=== PATIENT | female | born 1985 | race Caucasian/White ===

== ENCOUNTER 2017-03-15 19:41 | Emergency (ER) | payer OTHER ==
[~2017-03-15] VITALS: Ht 172.7 cm; Wt 111.4 kg
[2017-03-15] MEDS ORDERED: PRENTAB9 PO (19:48)
[2017-03-15 21:17] LABS: BASO % 0.4 % (0.0-1.0); EOS # 0.1 K/mm3 (0.0-0.50); EOS % 1.2 % (0.0-3.0); LARGE UNSTAINED CELL # 0.1 K/mm3 (0.0-0.4); LARGE UNSTAINED CELL % 1.3 % (0.0-4.0); LYMPH # 2.5 K/mm3 (1.5-4.5); LYMPH % 23.4 % (24.0-44.0); MEAN CORPUSCULAR HEMOGLOBIN 31.6 pg (27.0-33.0); MONO # 0.5 K/mm3 (0.0-0.8); MONO % 4.6 % (0.0-5.0); NEUTROPHILS # 6.9 K/mm3 (1.8-7.7); PLATELET COUNT, AUTOMATED 236 k/mm3 (150-450); RED CELL DISTRIBUTION WIDTH 12.8 % (11.5-14.5)
--- NOTE | 2017-03-15 21:40 | REPUSA ---
Clinical history: cramping, vaginal spotting. Findings: Real-time transabdominal ultrasound images of the pelvis were obtained. There is a single l kan intrauterine . The crown rump length measures 7.0 cm. heart rate measures 165 bpm . An anteverted uterus is noted. The right ovary measures 4.2 x 3.7 x 3.6 cm. There is a complex righ t ovarian cyst measuring 2.0 x 1.8 x 1.6 cm. The left ovary measures 3.8 x 3.3 x 3.5 cm. There is a c omplex left ovarian cyst, measuring 1.7 x 1.5 cm. No adnexal masses are seen. Color Doppler flow is s een within both ovaries. There is no evidence of free fluid. Impression: 1. Single live intrauterine measuring 13 weeks 1 day, with a heart rate of 165 bpm. E stimated due date is 09/23/2017. 2. Large subchorionic hemorrhage as described. 3. Bilateral complex ovarian cyst.
[2017-03-15 23:01] VITALS: BP 142/85
== END 2017-03-15 23:03 | disposition home or self-care (01) ==
LOC: M ED 19:41
DX: O20.9 Hemorrhage in early pregnancy, unspecified (principal); O26.892 Other specified pregnancy related conditions, second trimester; R10.2 Pelvic and perineal pain; O36.899 Maternal care for other specified fetal problems, unspecified trimester; O98.512 Other viral diseases complicating pregnancy, second trimester; B02.9 Zoster without complications; Z3A.13 13 weeks gestation of pregnancy; Z88.8 Allergy status to other drugs, medicaments and biological substances

== ENCOUNTER 2017-04-21 17:47 | Emergency (ER) | payer OTHER ==
[~2017-04-21] VITALS: Ht 172.7 cm; Wt 110.0 kg
[~2017-04-21 17:47] MED LIST: PRENTAB9 PO
[2017-04-21] MEDS ORDERED: NS 1,000 ML IV ONE (19:45)
[2017-04-21 20:13] LABS: BASO % 0.4 % (0.0-1.0); EOS # 0.1 10^3/uL (0.0-0.50); EOS % 0.6 % (0.0-3.0); IMMATURE GRANULOCYTE % 0.4 % (0-0); LYMPH # 2.1 10^3/uL (1.5-4.5); LYMPH % 19.4 % (24.0-44.0); MEAN CORPUSCULAR HEMOGLOBIN 31.7 pg (27.0-33.0); MEAN CORPUSCULAR VOLUME 90.7 fl (80.0-96.0); MONO # 0.6 10^3/uL (0.0-0.8); MONO % 5.5 % (0.0-5.0); NEUTROPHILS % 73.7 % (36.0-66.0); PLATELET COUNT, AUTOMATED 246 10^3/uL (150-450); RED CELL DISTRIBUTION WIDTH 12.9 % (11.5-14.5); WHITE BLOOD COUNT 10.8 10^3/uL (4.0-10.0)
--- NOTE | 2017-04-21 21:50 | REPUSA ---
OBSTETRICAL ULTRASOUND INDICATION: OB screening. Vaginal bleeding. Comparison is made with prior study at 03/15/2017. FINDINGS: A single live intrauterine gestation was identified with a heart rate of 140 bpm. The amniotic fluid index is grossly normal cm. The placenta was posterior, without evidence of placenta previa. The fetus was in a cephalic lie. The cervix measures 4.4 cm in length and is closed. Estimate d weight is 215 g. The cranium and ventricles are unremarkable. Posterior fossa is within normal limits. The spine demonstrates normal contour and appearance. The orbits, facial anatomy, nasal anatomy, and lip s are normal in appearance. All 4 extremities appear grossly unremarkable. A four-chamber heart is ap preciated. The stomach, kidneys, bladder, and diaphragm are intact. A three-vessel umbilical co rd with normal cord insertion is appreciated. BIOMETRIC MEASUREMENTS BPD 4.0 cm HC 15.8 cm AC 13.6 cm FL 2.8 cm IMPRESSION: 1. Single live fetus based on today's measurements at 18 weeks 3 days, with estimated due date of 09/03. 2. No abnormality detected on the survey. Normal growth has been appreciated.
[2017-04-21 22:24] VITALS: BP 124/81
== END 2017-04-21 22:25 | disposition home or self-care (01) ==
LOC: M ED 17:47
DX: O99.89 Other specified diseases and conditions complicating pregnancy, childbirth and the puerperium (principal); E86.0 Dehydration; O20.8 Other hemorrhage in early pregnancy; Z3A.18 18 weeks gestation of pregnancy; Z79.899 Other long term (current) drug therapy

== ENCOUNTER 2017-05-20 04:29 | Outpatient (CLI) | payer OTHER ==
[~2017-05-20] VITALS: Ht 172.7 cm; Wt 115.0 kg
[2017-05-20 05:59] LABS: MEAN CORPUSCULAR HEMOGLOBIN 31.4 pg (27.0-33.0); MEAN CORPUSCULAR HGB CONC 33.9 g/dl (32.0-36.5); MEAN CORPUSCULAR VOLUME 92.6 fl (80.0-96.0); PLATELET COUNT, AUTOMATED 227 10^3/uL (150-450); RED CELL DISTRIBUTION WIDTH 12.3 % (11.5-14.5); WHITE BLOOD COUNT 9.5 10^3/uL (4.0-10.0)
--- NOTE | 2017-05-20 06:20 | REPUSA ---
CLINICAL HISTORY: Subchorionic hemorrhage. TECHNIQUE: Realtime sonographic images were obtained in multiple projections via TA approach. The exa mination was performed by the steel turner and still images were submitted for interpretation. COMMENTS: Comparison to prior exam performed on 04/21/2017. Single, live intrauterine gestation in vertex presentation. heart rate 147 beats per minute. Posterior/fundal placenta. No placenta previa is identified. Decrease in the size of a subchorionic hemorrhage which measures 7.7x8x1.6 cm on the current exam. Amniotic fluid volume appears normal. Amniotic fluid index is 11 cm. Normal cervical length measuring 3.9 cm measured transvaginally. Funneling of the internal cervical os was visualized. IMPRESSION: Decrease in the size of the size of the subchorionic hemorrhage. Thank you for your kind referral of this patient.
--- NOTE | 2017-05-20 07:18 | HPE ---
DATE OF ADMISSION: 05/20/2017 32-year-old, 5, para 4, last menstrual period 12/17/2016, estimated date of confinement (EDC) 09/23/2017 at 22 weeks of gestation with a known subchorionic hemorrhage since 8 weeks of gestation. She had called regarding bleeding over three days and came in for evaluation. Her blood work is A positive, HIV negative, hepatitis negative, RPR negative, Rubella immune, Varicella immune, urine negative, gonorrhea and chlamydia are negative. One hour glucose 83. Pap was normal. HPV negative. Risk factors are that she has had subchorionic hemorrhage since 8 weeks. On examination, she is rather distressed and very anxious. Symphysis fundus height is 23, nontender uterus. heart rate is present. Ultrasound showed vertex, KEENAN of 11, cervix is 3.7. Despite the fact that the radiology report says she is funneling, on examination of the images, as well as discussing with the restorative care technician, there was no evidence of funneling. The subchorionic hemorrhage has not changed. It is 7 x 8 x 1.6. There is old blood in the vagina. The cervix is closed. There is no evidence of active or fresh bleeding. Hemoglobin is 12.7, hematocrit is 37.5, platelets are 227. The patient is hemodynamically stable. Blood pressure 119/70, respirations 20, pulse 138, and temperature is 98.2. In summary, we have a at 22 weeks with a subchorionic hemorrhage, known, no change in any of her status, hemodynamically stable. She was discharged with instructions of the possibility of steroids at 23 weeks in anticipation of a delivery. This will be discussed at her next visit. The patient has a followup ultrasound in 3 weeks' time, visit in 1 week. The patient was discharged undelivered and much calmer.
== END 2017-05-20 06:27 | disposition home or self-care (01) ==
LOC: M LDO 04:29
PROVIDERS: ATTEND Obstetrics & Gynecology
DX: O99.89 Other specified diseases and conditions complicating pregnancy, childbirth and the puerperium (principal); Z3A.22 22 weeks gestation of pregnancy; O20.8 Other hemorrhage in early pregnancy; O26.852 Spotting complicating pregnancy, second trimester

== ENCOUNTER 2017-05-30 08:45 | Outpatient (CLI) | payer OTHER ==
[~2017-05-30] VITALS: Ht 172.7 cm; Wt 116.8 kg
[2017-05-30 09:00] VITALS: BP 136/80
[2017-05-30] MEDS ORDERED: BETAMETHASONE SOLUSPAN 6MG/ML INJ 5ML (J0702) IM ONE (09:00)
[2017-05-31] MEDS ORDERED: ACET50TA PO (09:28)
== END 2017-05-30 09:11 | disposition home or self-care (01) ==
LOC: M LDO 08:45
PROVIDERS: ATTEND Obstetrics & Gynecology
DX: Z34.82 Encounter for supervision of other normal pregnancy, second trimester (principal); Z3A.23 23 weeks gestation of pregnancy
CPT/HCPCS: 96372; J0702

== ENCOUNTER 2017-05-31 08:58 | Outpatient (CLI) | payer OTHER ==
[~2017-05-31] VITALS: Ht 172.7 cm; Wt 116.8 kg
[2017-05-31 09:10] VITALS: BP 113/70
[2017-05-31] MEDS ORDERED: ACET50TA PO (09:28)
[2017-05-31] MEDS ORDERED: BETAMETHASONE SOLUSPAN 6MG/ML INJ 5ML (J0702) IM SCH (09:30)
== END 2017-05-31 09:15 | disposition home or self-care (01) ==
LOC: M LDO 08:58
PROVIDERS: ATTEND Obstetrics & Gynecology
DX: Z34.82 Encounter for supervision of other normal pregnancy, second trimester (principal); Z3A.23 23 weeks gestation of pregnancy
CPT/HCPCS: 96372; J0702

== ENCOUNTER 2017-06-11 18:37 | Outpatient (CLI) | payer OTHER ==
[~2017-06-11] VITALS: Ht 172.7 cm; Wt 119.2 kg
[~2017-06-11 18:37] MED LIST changes: +ACET50TA PO
[2017-06-11 18:51] VITALS: BP 140/85
[2017-06-11 20:14] LABS: CALCIUM OXALATE CRYSTALS SMALL
== END 2017-06-11 19:20 | disposition home or self-care (01) ==
LOC: M LDO 18:37
PROVIDERS: ATTEND Student in an Organized Health Care Education/Training Program
DX: O26.852 Spotting complicating pregnancy, second trimester (principal); Z36.89 Encounter for other specified antenatal screening; Z3A.25 25 weeks gestation of pregnancy

== ENCOUNTER 2017-06-23 19:34 | Outpatient (CLI) | payer OTHER ==
[~2017-06-23] VITALS: Ht 172.7 cm; Wt 123.7 kg
[2017-06-23 20:06] VITALS: BP 133/76
[2017-06-23 20:58] VITALS: BP 133/86
--- NOTE | 2017-06-23 22:10 | REPUSA ---
Clinical history: Pain. Comparison: 05/20/2017. Findings: Real-time transabdominal and transvaginal ultrasound images of the pelvis were obtained. Th e cervix measures 3.6 cm in length. A single live intrauterine is noted. heart rate m easures 139 bpm. Amniotic fluid index measures 16.7 cm. Umbilical artery systolic/diastolic ratio max sures 3.06, with a resistive index of 0.67. A posterior fundal placenta is noted. There is no evidenc e of placenta previa. There is no evidence of a nuchal cord. The previous subchorionic hemorrhage is significantly decreased in size from 7.7 x 8.0 x 1.6 cm to 2.1 x 3.1 x 0.5 cm. An anteverted uterus i s noted. There is no evidence of free fluid. Impression: 1. Single live intrauterine measuring 27 weeks 3 days, with a heart rate of 139 bpm. 2. Significant decrease in size of the subchorionic hemorrhage since the prior study.
--- NOTE | 2017-06-24 20:07 | HPE ---
DATE OF ADMISSION: 06/23/2017 This lady is a well-known 32-year-old 5, para 4, last menstrual period (LMP) 12/17/2016, estimated date of confinement (EDC) 09/23/2017 at 27 and 2 weeks of gestation who is complaining of low back pain, vaginal bleeding, round ligament pain, and old blood per vagina. The patient is no known to have a small subchorionic hemorrhage, which is resolving, and she has been prepped with steroid to completeness. Blood work is A positive, HIV negative, hepatitis negative, RPR negative. Varicella immune, rubella immune. Urine negative. Gonorrhea and chlamydia negative. One-hour glucose 83. Pap is normal. Her risk factor is subchorionic hemorrhage. She is 27 and 3 weeks of gestation, and she is steroid complete. On examination, she is distressed, having some low back pain. Also round ligament pain and muscle spasms in her back. She has a category 1 strip. Accelerations were noted. No contractions. Sterile speculum examination: There is old blood in the vagina. This was swabbed out. The cervical loss demonstrates some old blood. No jeanine bleeding. Her ultrasound shows she is at 27 and 3 appropriateness. heart rate 139. Amniotic fluid index (KEENAN) is 16.7. Posterior placenta fundal. Subchorionic hemorrhage is resolved from 7.7 x 8.0 x 1.6 down to 2.1 x 3.1 x 0.5. Vertex presenting. Not well applied to the cervix. Temperature is 98.0, blood pressure 133/86, respirations 18, pulse 78. Urine 1000. All is negative except 250 for blood. We are monitoring her closely. We have prepped her for labor. We are seeing her on a weekly basis and hoping to get her to at least 32 weeks if not beyond. The patient understands the risks and benefits of the conservative management, pelvic rest. Precautions noted. 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 The patient was discharged on undelivered in stable condition.
== END 2017-06-23 22:40 | disposition home or self-care (01) ==
LOC: M LDO 19:34
PROVIDERS: ATTEND Obstetrics & Gynecology
DX: O26.892 Other specified pregnancy related conditions, second trimester (principal); Z3A.27 27 weeks gestation of pregnancy; R10.2 Pelvic and perineal pain; O20.8 Other hemorrhage in early pregnancy

== ENCOUNTER 2017-07-04 00:08 | Inpatient (IN) | payer OTHER ==
[2017-07-04 00:38] LABS: MEAN CORPUSCULAR HEMOGLOBIN 30.3 pg (27.0-33.0); MEAN CORPUSCULAR HGB CONC 34.4 g/dl (32.0-36.5); PLATELET COUNT, AUTOMATED 260 10^3/uL (150-450); WHITE BLOOD COUNT 11.8 10^3/uL (4.0-10.0)
[2017-07-04 01:01] LABS: FIBRINOGEN 535 MG/DL (221-452)
[2017-07-04 01:05] LABS: INR 0.94
[2017-07-04] MEDS: LR 1,000 ML IV ×2 (02:15→02:52)
[2017-07-04] MEDS: BETAMETHASONE SOLUSPAN 6MG/ML INJ 5ML (J0702) IM (03:00)
[2017-07-04] MEDS ORDERED: CALCIUM GLUCONATE 1,000 MG in D5W MINI-BAG PLUS 100 ML IV (03:00)
[2017-07-04] MEDS ORDERED: ONDANSETRON 4MG/2ML VIAL (J2405) IV ×2 (03:00→05:30)
[2017-07-04] MEDS: PENICILLIN G POTASSIUM IV 5 MU in D5W MINI-BAG PLUS 100 ML IV (03:00)
[2017-07-04] MEDS: MAG Sulf (L&D) 4 GM/100 ML 4 GM in APPROPRIATE DILUENT 1 EA IV (03:00)
[2017-07-04] MEDS: MAG Sulf (OBGYN) 20GM/500ML 20,000 MG in APPROPRIATE DILUENT 1 EA IV (03:12)
[2017-07-04] MEDS: MAG Sulf (L&D) 4 GM/100 ML 6 GM in APPROPRIATE DILUENT 1 EA IV (03:15)
[2017-07-04] MEDS ORDERED: OXYTOCIN 30 UNITS IN 0.9% NaCl 500ML IV BAG (J2590) As Ordered (03:26)
[2017-07-04 05:06] LABS: CORD GAS O2 SAT A < 15.0 %; CORD GAS PO2 A < 10.0 mmHg
[2017-07-04 05:09] LABS: CORD GAS ABE A -2.9; CORD GAS ABE V -2.6; CORD GAS HCO3 A 25.4 MEQ/L; CORD GAS HCO3 V 26.3 MEQ/L; CORD GAS PCO2 V 63.4 mmHg; CORD GAS PH A 7.252 UNITS; CORD GAS PH V 7.236 UNITS; CORD GAS TCO2 A 27.2 MEQ/L; CORD GAS TCO2 V 28.3 MEQ/L
[2017-07-04] MEDS: OXYTOCIN DRIP 30 UNITS in APPROPRIATE DILUENT 1 EA IV (05:17)
[2017-07-04] MEDS ORDERED: MEASLES,MUMPS,RUBELLA VACCINE INJ (MMR-II) (90707) SC (05:30)
[2017-07-04] MEDS ORDERED: METHYLERGONOVINE MALEATE 0.2 MG/ML VIAL (J2210) IM (05:30)
[2017-07-04] MEDS ORDERED: ACETAMINOPHEN 500 MG TAB PO (05:30)
[2017-07-04] MEDS ORDERED: RHOGAM 300 MCG (1500 IU) INJ (J2790) IM (05:30)
[2017-07-04] MEDS ORDERED: PROMETHAZINE 25 MG TAB PO (05:30)
[2017-07-04] MEDS ORDERED: DIBUCAINE 1% OINTMENT 30GM TOP (05:30)
[2017-07-04] MEDS: IBUPROFEN 800 MG TAB PO (06:41)
[2017-07-04] MEDS ORDERED: PENICILLIN G POTASSIUM IV 2.5 MU in APPROPRIATE DILUENT 1 EA IV (07:30)
[2017-07-04] MEDS: PRENATAL VITAMINS CHEWABLE TABLET PO (09:51)
[2017-07-04] MEDS: DOCUSATE SODIUM 100 MG CAP PO (09:51)
== END 2017-07-04 15:35 | disposition home or self-care (01) | DRG 775 ==
LOC: M LDO 00:08 → M LDI 02:53 → M OBS 06:16
PROC: 10E0XZZ Delivery of Products of Conception, External Approach (ICD-10-PCS; principal; 2017-07-04)
DX: O60.13X0 Preterm labor second trimester with preterm delivery third trimester, not applicable or unspecified (principal); Z37.0 Single live birth; Z3A.28 28 weeks gestation of pregnancy; O20.8 Other hemorrhage in early pregnancy

== ENCOUNTER → 2018-02-06 | Outpatient (CLI) | payer OTHER | LOC: M LRY 17:04 | DX: S99.922A Unspecified injury of left foot, initial encounter (principal); W18.30XA Fall on same level, unspecified, initial encounter; Y92.009 Unspecified place in unspecified non-institutional (private) residence as the place of occurrence of the external cause ==

== ENCOUNTER → 2018-03-21 | Outpatient (REF) | payer OTHER | LOC: M SFHCLERA 18:49 | DX: R10.2 Pelvic and perineal pain (principal) | CPT/HCPCS: 87086 ==